=== PATIENT | female | born 1970 | race Hispanic/Latino ===

== ENCOUNTER 2022-03-01 21:38 | Emergency (ER) | payer OTHER ==
[2022-03-01] MEDS ORDERED: Lidocaine 1% (PF) 30 ML VIAL ONE (21:51)
[2022-03-01] MEDS ORDERED: TETANUS, DIPHTHERIA TOX,ADULT (TDVAX) 0.5 ML VIAL IM ONE (21:53)
[2022-03-01] MEDS ORDERED: Boostrix 0.5 ML (Tdap) VIAL (>/=7 yrs of age) ONE (21:57)
[2022-03-02] MEDS ORDERED: Cephalexin 250 MG CAP ONE (00:34)
== END 2022-03-02 00:40 | disposition home or self-care (01) ==
LOC: NAV ERS 21:38
DX: S62.637B Displaced fracture of distal phalanx of left little finger, initial encounter for open fracture (principal); X58.XXXA Exposure to other specified factors, initial encounter
CPT/HCPCS: 12002; 90471; 90714; 90715; J2001